=== PATIENT | male | born 1995 | race American Indian/Alaskan Native ===

== ENCOUNTER 2017-02-03 09:06 | Emergency (ER) | payer BC, OTHER ==
--- NOTE | 2017-02-03 09:52 | ED PDOC ---
Arrival/HPI - General Historian: Patient - General Chief Complaint: Abdominal Pain Time Seen by Provider: 02/03/17 09:26 - History of Present Illness Narrative History of Present Illness (Text): 02/03/17 09:50 21 year old male presenting with three days of lower abdominal discomfort, flatus, and pain when passing a bowel movement. He is tolerating his regular diet fine. He denies any nausea, vomiting, dysuria, hematochezia, melena, fever , chills, myalgias, recent sick contacts, or eating anything out of the ordinary. He admits to some intermittent loose and formed stools. He does not have any past abdominal surgeries. (Nacho Valdes) Past Medical History - Provider Review Nursing Documentation Reviewed: Yes - Infectious Disease Hx of Infectious Diseases: None - Psychiatric Hx Substance Use: No - Anesthesia Hx Anesthesia: No Family/Social History - Physician Review Nursing Documentation Reviewed: Yes Family/Social History: Unknown Family HX Smoking Status: Never Smoked Hx Alcohol Use: Yes Frequency of alcohol use: Socially Hx Substance Use: No Allergies/Home Meds Allergies/Adverse Reactions: Allergies No Known Allergies Allergy (Verified 02/03/17 09:19) Review of Systems - Review of Systems Constitutional: absent: Fatigue, Weight Change, Fevers ENT: absent: Sore Throat, Rhinorrhea, Sinus Congestion Respiratory: absent: SOB, Cough, Wheezing Cardiovascular: absent: Chest Pain, Palpitations, Syncope Gastrointestinal: Abdominal Pain (lower), Stool Changes. absent: Nausea, Vomiting, Hematochezia, Hematemesis, Anorexia Genitourinary Male: absent: Dysuria, Frequency, Hematuria Musculoskeletal: absent: Arthralgias, Back Pain, Myalgias Skin: absent: Rash, Pruritis, Skin Lesions Neurological: absent: Headache, Dizziness, Focal Weakness Endocrine: absent: Diaphoresis, Polyuria, Polydipsia Hemo/Lymphatic: absent: Easy Bleeding, Easy Bruising Psychiatric: absent: Anxiety, Depression Physical Exam Temperature: Afebrile Blood Pressure: Normal Pulse: Regular Respiratory Rate: Normal Appearance: Positive for: Well-Appearing, Non-Toxic Pain Distress: Mild Mental Status: Positive for: Alert and Oriented X 3 - Systems Exam Pupils: Present: PERRL Extroacular Muscles: Present: EOMI Conjunctiva: Present: Injected Mouth: Present: Moist Mucous Membranes Pharnyx: Present: Normal. No: ERYTHEMA, EXUDATE Respiratory/Chest: Present: Clear to Auscultation, Good Air Exchange. No: Respiratory Distress, Accessory Muscle Use Cardiovascular: Present: Regular Rate and Rhythm, Normal S1, S2, Peripheal Pulses Present Abdomen: Present: Normal Bowel Sounds. No: Tenderness, Distention, Peritoneal Signs, Rebound, Scars Back: Present: Normal Inspection. No: CVA Tenderness, Midline Tenderness Upper Extremity: Present: Normal Inspection. No: Cyanosis, Edema Lower Extremity: Present: Normal Inspection. No: Edema, CALF TENDERNESS Neurological: Present: CN II-XII Intact, Speech Normal, Motor Func Grossly Intact Skin: Present: Warm, Dry, Normal Color Psychiatric: Present: Alert, Oriented x 3, Normal Insight, Normal Concentration Vital Signs Temp Pulse Resp BP Pulse Ox 02/03/17 11:56 98 F 72 19 108/71 99 02/03/17 11:00 69 18 104/71 100 02/03/17 09:22 97.8 F 73 16 102/69 100 Medical Decision Making ED Course and Treatment: Patient Seen With Resident: In agreement with resident note which contains more details about the patient. Patient was seen and evaluated with resident. Came up with plan and treatment together. Patient described no difficulty eating pancakes and chicken yesterday. On current exam, patient has no abdominal pain, fever, no recent travel. Denies of any family history of inflammatory bowel disease. Patient has no pain and is asymptomatic. Patient will be discharged with instructions for outpatient follow -up. (Willem Silva) Patient agrees to be discharged with home probiotic for likely self-limited, gastroenteritis. 02/03/17 11:38 (Nacho Valdes) - Lab Interpretations Lab Results: 02/03/17 10:13 02/03/17 10:13 Lab Results 02/03/17 10:13: Sodium 141, Potassium 4.2, Chloride 105, Carbon Dioxide 29, Anion Gap 11, BUN 18, Creatinine 1.0, Est GFR ( Amer) > 60, Est GFR (Non- Af Amer) > 60, Random Glucose 90, Calcium 9.4, Total Bilirubin 1.0, AST 20, ALT 27, Alkaline Phosphatase 40, Total Protein 7.0, Albumin 4.3, Globulin 2.7, Albumin/Globulin Ratio 1.6, Amylase 103, Lipase 258 02/03/17 10:13: WBC 4.8, RBC 4.01, Hgb 12.8 L, Hct 37.7 L, MCV 94.0, MCH 31.9, MCHC 34.0, RDW 13.9, Plt Count 184, MPV 9.4, Gran % 35.9 L, Lymph % (Auto) 57.3 H, [place] % (Auto) 3.5, Eos % (Auto) 3.1, Baso % (Auto) 0.2, Gran # 1.73, Lymph # 2.8, [place] # 0.2, Eos # 0.2, Baso # 0.01 02/03/17 09:58: Urine Color Yellow, Urine Appearance Clear, Urine pH 6.5, Ur Specific [place] 1.025, Urine Protein Negative, Urine Glucose (UA) Negative, Urine Ketones Negative, Urine Blood Negative, Urine Nitrate Negative, Urine Bilirubin Negative, Urine Urobilinogen 1.0 H, Ur Leukocyte Esterase Negative Disposition/Present on Arrival - Present on Arrival Any Indicators Present on Arrival: No History of DVT/PE: No History of Uncontrolled Diabetes: No Urinary Catheter: No History of Decub. Ulcer: No History Surgical Site Infection Following: None - Disposition Have Diagnosis and Disposition been Completed?: Yes Disposition Time: 11:40 Patient Plan: Discharge - Disposition Diagnosis: Viral gastroenteritis Disposition: HOME/ ROUTINE Condition: STABLE Additional Instructions: 1) Please return to the ED for any worsening of symptoms. 2) Take any medication as prescribed 3) Avoid dairy products for the time being of your illness. Prescriptions: Lactobacillus Acidophilus [Acidophilus Lactobacillus] 1 each PO DAILY 7 Days capsule Referrals: Isidra Espinoza [Primary Care Provider] - Follow up with primary Forms: [employer] ([place]ian), WORK NOTE
[2017-02-03 10:07] LABS: PH,URINE 6.5 (4.7-8.0); URINE BILIRUBIN NEGATIVE (NEGATIVE); URINE BLOOD NEGATIVE (NEGATIVE); URINE GLUCOSE (UA) NEGATIVE (NEGATIVE); URINE KETONE NEGATIVE (NEGATIVE); URINE LEUKOCYTE ESTERASE NEGATIVE Leu/uL (NEGATIVE)
[2017-02-03 10:10] LABS: URINE APPEARANCE CLEAR (CLEAR); URINE COLOR YELLOW (YELLOW); URINE PROTEIN NEGATIVE mg/dL (<30 mg/dL)
[2017-02-03 10:18] LABS: BASO # 0.01 K/mm3 (0.0-2.0); BASO % 0.2 % (0.0-3.0); EOS # 0.2 (0.0-0.7); EOS % 3.1 % (1.5-5.0); GRAN # 1.73 (1.4-6.5); GRAN % 35.9 % (50.0-68.0); HEMATOCRIT 37.7 % (42.0-52.0); LYMPH # 2.8 (1.2-3.4); LYMPH % 57.3 % (22.0-35.0); MEAN CORPUSCULAR HEMOGLOBIN 31.9 pg (25.0-35.0); MEAN PLATELET VOLUME 9.4 fl (7.0-11.0); MONO # 0.2 (0.1-0.6); MONO % 3.5 % (1.0-6.0); RED CELL DISTRIBUTION WIDTH 13.9 % (11.5-14.5); WHITE BLOOD COUNT 4.8 10^3/ul (4.5-11.0)
[2017-02-03 10:30] LABS: ALB/GLOB RATIO 1.6 (1.1-1.8); ALKALINE PHOSPHATASE 40 U/L (38-126); ALT/SGPT 27 U/L (7-56); AMYLASE 103 U/L (35-125); AST/SGOT 20 U/L (17-59); BLOOD UREA NITROGEN 18 mg/dL (7-21); CALCIUM 9.4 mg/dL (8.4-10.5); CARBON DIOXIDE 29 mmol/L (21-33); CHLORIDE 105 mmol/L (98-107); GFR AFRICAN-AMERICAN > 60; GLUCOSE,RANDOM 90 mg/dL (70-110); LIPASE 258 U/L (23-300); POTASSIUM 4.2 mmol/L (3.6-5.0); SODIUM 141 mmol/L (132-148)
[2017-02-03 11:57] VITALS: BP 108/71; PULSE 72; RESP 19; TEMP 98; O2SAT 99
== END 2017-02-03 11:58 | disposition home or self-care (01) ==
LOC: ED 09:06
DX: A08.4 Viral intestinal infection, unspecified (principal)

== ENCOUNTER 2017-04-24 09:44 | Emergency (ER) | payer BC, MEDICAID | END 2017-04-24 10:06 | disposition left against medical advice (07) | LOC: ED 09:44 | DX: Z02.89 Encounter for other administrative examinations (principal); J34.9 Unspecified disorder of nose and nasal sinuses ==

== ENCOUNTER 2017-07-31 08:42 | Emergency (ER) | payer BC, OTHER ==
[2017-07-31 09:15] VITALS: TEMP 98.5
--- NOTE | 2017-07-31 10:13 | ED PDOC ---
Arrival/HPI - General Chief Complaint: Flu-like Symptoms Time Seen by Provider: 07/31/17 09:08 Historian: Patient - History of Present Illness Narrative History of Present Illness (Text): 07/31/17 10:10 21-year-old male presents today with a four-day history of cough and nasal congestion sore throat and fatigue. Patient denies dizziness or weakness. Denies chest pain or shortness of breath. Patient complaining of nasal congestion. Patient states that he has a sore throat. Patient states he is coughing up green-yellow phlegm. Patient denies a history of smoking. Denies sick contacts. pt denies abdominal pain. No medications have been taken at home. Patient complaining of subjective fevers. No other complaints Time/Duration: Other (4 days) Symptom Onset: Gradual Symptom Course: Unchanged Quality: Aching Severity Level: Mild Past Medical History - Provider Review Nursing Documentation Reviewed: Yes - Travel History Have you recently traveled outside [place] w/in the past 3 mons?: No - Infectious Disease Hx of Infectious Diseases: None - Tetanus Immunization Tetanus Immunization: Unknown - Psychiatric Hx Substance Use: No - Anesthesia Hx Anesthesia: No Family/Social History - Physician Review Nursing Documentation Reviewed: Yes Family/Social History: Unknown Family HX Smoking Status: Never Smoked Hx Alcohol Use: Yes Hx Substance Use: No Allergies/Home Meds Allergies/Adverse Reactions: Allergies No Known Allergies Allergy (Verified 07/31/17 09:14) Review of Systems - Review of Systems Constitutional: Fevers. absent: Fatigue ENT: Sore Throat, Sinus Congestion Respiratory: Cough Cardiovascular: absent: Chest Pain, Palpitations Gastrointestinal: Nausea. absent: Abdominal Pain, Constipation, Diarrhea, Vomiting Genitourinary Male: absent: Dysuria, Frequency, Hematuria Musculoskeletal: absent: Arthralgias, Back Pain, Neck Pain Skin: absent: Rash, Pruritis Neurological: absent: Headache, Dizziness Physical Exam Vital Signs Reviewed: Yes Vital Signs Temp Pulse Resp BP Pulse Ox 07/31/17 11:03 65 18 116/75 100 07/31/17 09:12 98.5 F 81 16 120/66 97 Temperature: Afebrile Blood Pressure: Normal Pulse: Regular Respiratory Rate: Normal Appearance: Positive for: Well-Appearing, Non-Toxic, Comfortable Pain Distress: None Mental Status: Positive for: Alert and Oriented X 3 - Systems Exam Head: Present: Atraumatic Pupils: Present: PERRL Extroacular Muscles: Present: EOMI Conjunctiva: Present: Normal Ears: Present: Normal, NORMAL TM, Normal Canal. No: Erythema, TM Bulging Mouth: Present: Moist Mucous Membranes, Other (there are few pinpoint vesicles on right side of upper lip.). No: Drooling, Trismus Pharnyx: Present: ERYTHEMA, Other (+ post nasal drip. ). No: EXUDATE, TONSILS ENLARGED, Peritonsilar Swelling, Uvular Deviation, Muffled/Hoarse Voice, Strider Nose (External): Present: Atraumatic Nose (Internal): Present: Normal Inspection Neck: Present: Normal Range of Motion, Trachea Midline. No: Meningeal Signs, MIDLINE TENDERNESS, Paraspinal Tenderness Respiratory/Chest: Present: Clear to Auscultation, Good Air Exchange. No: Respiratory Distress, Accessory Muscle Use Cardiovascular: Present: Regular Rate and Rhythm Abdomen: No: Tenderness, Distention, Rebound, Guarding Upper Extremity: Present: Normal ROM Lower Extremity: Present: Normal ROM Neurological: Present: GCS=15, Speech Normal Skin: Present: Warm, Dry, Normal Color. No: Rashes Psychiatric: Present: Alert, Oriented x 3 Medical Decision Making ED Course and Treatment: 07/31/17 10:14 Patient is nontoxic well-appearing. C/o flu-like symptoms. tylenol PO rapid flu; negative cxr: no infiltrate, no effusion Tamiflu po zithromax po Patient reassessment: Pt feeling better; vitals stable. discussed all results with patient. I advised follow up with primary care physician within the next 2 days. I advised increase fluids and return if symptoms worsen persist or if new symptoms develop Patient verbalizes understanding of discharge instructions and need for immediate followup. all aspects of this case were discussed the attending of record. IMPRESSION; Cough, sore throat, flu like symptoms, cold sore Motrin one tablet every 6 hours as needed for pain Tamiflu: 1 capsule twice daily 5 days zithromax daily x 4 days. Continue using abreva for Cold sore. Increase fluids Followup with primary care physician the next 2 days Return if symptoms worsen persist or if new symptoms develop: Continued high fevers, dizziness, weakness, chest pain or shortness of breath vomiting/diarrhea , or if any other concerning symptoms develop - Lab Interpretations Lab Results: Lab Results 07/31/17 09:40: Influenza Typ A,B (EIA) Negative for flu a/b - RAD Interpretation Radiology Orders: 07/31/17 10:09 CHEST TWO VIEWS (PA/LAT) [RAD] Stat - Medication Orders Current Medication Orders: Discontinued Medications Acetaminophen (Tylenol 325mg Tab) 975 mg PO STAT STA Stop: 07/31/17 10:15 Last Admin: 07/31/17 10:42 Dose: 975 mg MAR Pain/Vitals Document 07/31/17 10:42 CHHAYA (Rec: 07/31/17 10:43 CHHAYA [id number]) Pain Reassessment Is This A Pain ReAssessment? Yes Presence of Pain Presence of Pain Yes Pain Scale Used Pain Scale Used Numeric Location Pain Location Body Site Throat Intensity 2 Scale Used Numeric Disposition/Present on Arrival - Present on Arrival Any Indicators Present on Arrival: No History of DVT/PE: No History of Uncontrolled Diabetes: No Urinary Catheter: No History of Decub. Ulcer: No History Surgical Site Infection Following: None - Disposition Have Diagnosis and Disposition been Completed?: Yes Diagnosis: Cough, Sore throat, Flu-like symptoms, Cold sore Disposition: HOME/ ROUTINE Disposition Time: 11:33 Patient Plan: Discharge Patient Problems: Current Active Problems Problem Status Onset Cold sore Acute Cough Acute Flu-like symptoms Acute Sore throat Acute Condition: GOOD Discharge Instructions (ExitCare): Cough in Adults, Sore Throat, Adult (DC) Additional Instructions: Motrin one tablet every 6 hours as needed for pain/fever Tamiflu: 1 capsule twice daily 5 days zithromax daily x 4 days. Continue using abreva for Cold sore. Increase fluids Followup with primary care physician the next 2 days Return if symptoms worsen persist or if new symptoms develop: Continued high fevers, dizziness, weakness, chest pain or shortness of breath vomiting/diarrhea , or if any other concerning symptoms develop Prescriptions: Azithromycin [Zithromax] 250 mg PO DAILY #4 tab Ibuprofen [Motrin] 600 mg PO Q6H PRN #20 tab PRN Reason: pain/fever reduction Oseltamivir [Tamiflu] 75 mg PO BID #10 cap Referrals: Juana [place] MD [Staff Provider] - Follow up with primary Tristan Cheek DO [Staff Provider] - Follow up with primary [facility] [Outside] - Follow up with primary Forms: [employer] ([place] African), WORK NOTE
[2017-07-31 11:03] VITALS: BP 116/75; PULSE 65; RESP 18; O2SAT 100
--- NOTE | 2017-07-31 12:38 | RAD ---
HISTORY: cough COMPARISON: No prior. TECHNIQUE: Chest PA and lateral FINDINGS: LUNGS: No active pulmonary disease. PLEURA: No significant pleural effusion identified. No pneumothorax apparent. CARDIOVASCULAR: Normal. OSSEOUS STRUCTURES: No significant abnormalities. VISUALIZED UPPER ABDOMEN: Normal. OTHER FINDINGS: None. IMPRESSION: No active disease.
== END 2017-07-31 12:02 | disposition home or self-care (01) ==
LOC: ED 08:42
DX: J11.1 Influenza due to unidentified influenza virus with other respiratory manifestations (principal); R05 Cough; B00.1 Herpesviral vesicular dermatitis